=== PATIENT | female | born 1950 | race Caucasian/White ===

== ENCOUNTER → 2018-09-03 | Outpatient (CLI) | payer OTHER ==
[2018-09-03] VITALS (10 sets, daily range): BP systolic 102–121; BP diastolic 41–94
[~2018-09-03] VITALS: Ht 160 cm; Wt 73.0 kg
[~2018-09-03] MED LIST: ASPIRIN325 PO; BUSPIRONE HCL10 MG PO; CYMBALTA60 MG PO; IMDUR 60 MG TAB60 M1 PO; LOVASTATIN 20 M20 MG PO; NITROGLYCERIN0.4 MG SUBLING; NORVASC5 MG PO; NOVOLOG100 UNIT/1 SUBQ; WELLBUTRIN SR150 MG PO
[2018-09-03 08:30] LABS: HEMATOCRIT 39.7 % (37.0-47.0); HEMOGLOBIN 12.9 gm/dL (12.0-15.0); MCH 28.3 pg (26.0-34.0); MCHC 32.5 g/dL (28.0-37.0); MPV 9.3 fl. (7.2-11.1); RBC 4.56 mil/uL (4.20-5.00); RDW-CV 13.8 % (10.5-14.5); WBC 6.1 thou/uL (4.0-11.0)
[2018-09-03 08:46] LABS: APTT 25.8 Seconds (25.0-31.3); PROTIME 10.6 Seconds (9.20-11.50)
[2018-09-03 09:07] LABS: ANION GAP 10 mmol/L (7-16); BUN 17 mg/dL (7-18); CALCIUM 8.2 mg/dL (8.5-10.1); CHLORIDE 108 mmol/L (98-107); CO2 24 mmol/L (21-32); CREATININE 1.4 mg/dL (0.6-1.3); GLUCOSE 131 mg/dL (70-99); POTASSIUM 4.1 mmol/L (3.5-5.1); SODIUM 142 mmol/L (136-145)
[2018-09-03 09:12] LABS: ALBUMIN 3.5 g/dL (3.4-5.0); ALKALINE PHOSPHATASE 53 U/L (46-116); CHOLESTEROL 170 mg/dL (<200); HDL CHOLESTEROL 84 mg/dL (>40); LDL CHOLESTEROL 76 mg/dL (<100); SGOT 19 U/L (15-37); SGPT 21 U/L (30-65); TOTAL BILIRUBIN 0.3 mg/dL (<0.1-1.0); TOTAL PROTEIN 6.5 g/dL (6.4-8.2); TRIGLYCERIDE 52 mg/dL (<150); VLDL 10 mg/dL (<40)
[2018-09-03 09:16] LABS: SERUM ASSESSMENT Clear
--- NOTE | 2018-09-03 16:19 | EKG ---
[place] [address] ELECTROCARDIOGRAM REPORT Name: TAINACOURTNEY Room: [facility]#: [id number] Admission: 09/03/18 Attend Phys: Garcia Atkinson MD, Discharge: Date of : 48 Report #: [id number] THIS REPORT FOR: //name// [facility] Test Date: 2018-09-03 Test Time: 08:10:31 Pat Name: COURTNEY HER Department: Room: Gender: F [place] Shearer: : 1950 Requested By: Garcia Atkinson Order Number: [id number] MD: Garcia Atkinson Measurements Intervals [place] Rate: 69 P: 50 MA: 147 QRS: -44 QRSD: 80 T: 58 QT: 425 QTc: 456 Interpretive Statements Sinus rhythm Left axis deviation Borderline low voltage, extremity leads No previous ECG available for comparison Electronically Signed On 09-03-2018 16:19:46 [employer] by Garcia Atkinson [email or web address] <ELECTRONICALLY SIGNED> By: Garcia Atkinson MD, [facility] 09/03/18 1619 0810 0810 Garcia Atkinson MD, FACC /EPI
--- NOTE | 2018-09-05 10:56 | CARD ---
[address] [address] CARDIAC CATH REPORT Name: COURTNEY HER BLAYNE Room: [facility] GutierrezJosueWardJosue#: [id number] Admission: 09/03/18 Attend Phys: Garcia Atkinson MD, Discharge: Date of : 48 Report #: [id number] THIS REPORT FOR: //name// APPROVED REPORT Study performed: 09/03/2018 08:07:52 Patient Details Patient Status: Out-Patient Room #: The patient is a 68 year-old female Event Personnel Garcia Atkinson MD Procedures Performed Left heart catheterization left ventriculography selective coronary arteriography Indication Chest pain Risk Factors Hypercholesterolemia, Diabetes Previous Procedures/Diagnoses Previous PCI Procedure Narrative The patient was brought electively to the Cardiac Catheterization Laboratory and was prepped and draped in a sterile manner. The right femoral was infiltrated with 2% Lidocaine subcutaneous anesthesia. A 6 [place] sheath was inserted into the right femoral artery. Coronary angiography was performed using coronary diagnostic catheters. The right coronary system was accessed and visualized with a Diagnostic catheter. The left coronary system was accessed and visualized with a Diagnostic catheter. The left ventricle was accessed and visualized with a Diagnostic catheter. Left ventricular/Aortic Valve gradient assessed via catheter pullback. Left ventriculogram was performed in CONNOR projection. Pre-demployment femoral angiogram was performed . Closure device was deployed with a 6 Fr Mynx. There was no hematoma. Coronary Angiography The patient's coronary [place] [address] CARDIAC CATH REPORT Name: TAINACOURTNEYGRETCHEN CISNEROS Room: [facility] Nallely#: [id number] Admission: 09/03/18 Attend Phys: Garcia Atkinson MD, Discharge: Date of : 48 Report #: [id number] Diagnostic Cath Left Main 0% narrowing LAD Widely patent mid LAD stent with 20% mid LAD narrowing Circumflex Widely patent mid circumflex with 0% narrowing Right Coronary Dominant vessel with 0% narrowing Hemodynamics The aortic pressure is 130/70 mmHg with a mean of mmHg. The left ventricular end diastolic pressure is 14 mmHg. Pullback from the left ventricle to the aorta revealed no gradient across the aortic valve. Conclusion #1 Modest coronary artery disease characterized by the following: A 0% left main coronary artery narrowing B widely patent mid LAD stent with 20% mid vessel narrowing C nondominant circumflex with a widely patent mid circumflex stent D dominant right coronary artery with 0% narrowing #2 normal left ventricular systolic function, estimated ejection fraction being 65% #3 normal left-sided hemodynamics study Recommendations Cardiac Risk Reduction Program Diagnostic Cath Approved by: Garcia Atkinson MD Date/Time: 09/05/2018 10:54:38 <ELECTRONICALLY SIGNED> By: Garcia Atkinson MD, [facility] 09/05/18 1056 1056 [id number] Atkinson MD, FACC /INF
== END | disposition home or self-care (01) ==
LOC: M.CL 07:38
PROVIDERS: Internal Medicine
DX: I25.10 Atherosclerotic heart disease of native coronary artery without angina pectoris (principal); E78.00 Pure hypercholesterolemia, unspecified; E11.9 Type 2 diabetes mellitus without complications; I10 Essential (primary) hypertension; Z95.5 Presence of coronary angioplasty implant and graft; Z90.49 Acquired absence of other specified parts of digestive tract; Z90.710 Acquired absence of both cervix and uterus; Z96.611 Presence of right artificial shoulder joint; Z98.890 Other specified postprocedural states; Z79.899 Other long term (current) drug therapy; Z88.8 Allergy status to other drugs, medicaments and biological substances; Z79.82 Long term (current) use of aspirin